=== PATIENT | female | born 1970 | race Caucasian/White ===

== ENCOUNTER 2016-08-27 19:15 | Emergency (ER) | payer MEDICARE, OTHER ==
[2016-08-27] MEDS ORDERED: DEXAMETHASONE 10 MG/ML VIAL PO STA (21:26)
[2016-08-27] MEDS ORDERED: CHERRY SYRUP 10 ML UDC PO ONE (21:31)
[2016-08-27] MEDS ORDERED: DEXAMETHASONE 10 MG/ML VIAL ONE (21:31)
[2016-08-27] MEDS ORDERED: CEFUROXIME AXETIL 250 MG TABLET PO STA (22:12)
[2016-08-27] MEDS ORDERED: CEPHALEXIN 250 MG CAPSULE PO ONE (22:15)
== END 2016-08-27 22:30 | disposition home or self-care (01) ==
DX: H66.91 Otitis media, unspecified, right ear (principal); Q93.4 Deletion of short arm of chromosome 5; K21.9 Gastro-esophageal reflux disease without esophagitis; Z98.2 Presence of cerebrospinal fluid drainage device
CPT/HCPCS: 71020; 87070; 87430; 99283; 99284; A9270

== ENCOUNTER 2017-01-14 10:15 | Outpatient (CLI) | payer MEDICARE, OTHER | END 2017-01-14 10:16 | disposition home or self-care (01) | LOC: LAB 10:15 | PROVIDERS: ATTEND Internal Medicine | DX: Z00.00 Encounter for general adult medical examination without abnormal findings (principal) | CPT/HCPCS: 36415; 82947; 84443 ==

== ENCOUNTER 2018-05-20 13:30 | Outpatient (CLI) | payer MEDICARE, OTHER ==
--- NOTE | 2018-05-20 15:18 | XRAY Report ---
Reason: RIB,CHEST PAIN,RIB PAIN AFTER FALL,R HIP PAIN Procedure Date: 05/20/2018 Accession Number: [id number] / [id number] Procedure: XR - Hip w/Pelvis 2-3V RT CPT Code: FULL RESULT: EXAM: RIGHT HIP AND PELVIS RADIOGRAPHY EXAM DATE: 05/20/2018 02:15 PM. HISTORY: Chest pain, rib pain after fall, right hip pain. COMPARISONS: XR HIPS BILAT 04/29/2012 12:46 PM. TECHNIQUE: 1 view of the pelvis and 1 view of the hip. FINDINGS: Bones: Linear tubular calcification projecting over the right mid abdomen, possibly vestigial rib, also seen in 2011. No fracture or bone lesion. Joints: The bilateral hip, pubis symphysis, and sacroiliac joints are preserved. Soft Tissues: Normal. No soft tissue swelling. IMPRESSION: No fracture or dislocation. RADIA
--- NOTE | 2018-05-20 15:52 | XRAY Report ---
Reason: RIB,CHEST PAIN,RIB PAIN AFTER FALL,R HIP PAIN Procedure Date: 05/20/2018 Accession Number: [id number] / [id number] Procedure: XR - Chest 2 View X-Ray CPT Code: 41558 FULL RESULT: EXAM: CHEST RADIOGRAPHY EXAM DATE: 05/20/2018 02:15 PM. CLINICAL HISTORY: Rib and chest pain after fall, right hip pain. COMPARISON: CHEST 2 VIEW PA/LAT 08/27/2016 9:36 PM. TECHNIQUE: 2 views. FINDINGS: Lungs/Pleura: No focal opacities evident. No pleural effusion. No pneumothorax. Normal volumes. Mediastinum: Stable cardiomediastinal silhouette, altered by scoliosis. Other: Similar appearance of the severe scoliosis with questionable interval increase in the angle of the orthopedic fixation kelly, possibly projectional. No fracture is detected. IMPRESSION: No acute cardiopulmonary abnormality is detected. RADIA
--- NOTE | 2018-05-20 17:19 | XRAY Report ---
Reason: RIB,CHEST PX,RIB PAIN AFTER FALL,R HIP PAIN Procedure Date: 05/20/2018 Accession Number: [id number] / [id number] Procedure: XR - Ribs 2 View RT CPT Code: FULL RESULT: EXAM: RIGHT RIB RADIOGRAPHY EXAM DATE: 05/20/2018 02:15 PM. CLINICAL HISTORY: Rib, chest pain, rib pain after fall, right hip pain. COMPARISON: CHEST 2 VIEW PA/LAT 08/27/2016 9:36 PM. TECHNIQUE: 2 views. FINDINGS: Bones: No evidence for acute rib fracture. Moderate levoscoliosis in the thoracic spine with kelly in place. No pneumothorax or pleural effusion seen. IMPRESSION: No evidence for acute rib fracture. See above. RADIA
== END 2018-05-20 13:31 | disposition home or self-care (01) ==
LOC: DI 13:30
PROVIDERS: ATTEND Internal Medicine
DX: R07.9 Chest pain, unspecified (principal); R07.82 Intercostal pain; M25.551 Pain in right hip
CPT/HCPCS: 71046

== ENCOUNTER 2018-10-26 08:00 | Outpatient (CLI) | payer MEDICARE, OTHER | END 2018-10-26 23:59 | disposition home or self-care (01) | LOC: LAB.R 08:00 | PROVIDERS: ATTEND Obstetrics & Gynecology | DX: R10.2 Pelvic and perineal pain (principal) | CPT/HCPCS: 87086 ==

== ENCOUNTER 2018-11-04 14:26 | Outpatient (CLI) | payer MEDICARE, OTHER ==
[2018-11-04 15:03] LABS: MEAN CORPUSCULAR HEMOGLOBIN 25.3 pg (27.0-31.0); MEAN CORPUSCULAR HGB CONC 31.8 g/dL (32.0-36.0); MEAN CORPUSCULAR VOLUME 79.4 fL (81.0-99.0); MEAN PLATELET VOLUME 9.9 fL (7.9-10.8); RED BLOOD COUNT 4.35 10^6/uL (4.20-5.40); RED CELL DISTRIBUTION WIDTH 16.1 % (12.0-15.0); WHITE BLOOD COUNT 7.8 x10^3/uL (4.8-10.8)
[2018-11-04 15:37] LABS: HB2 TOTAL 12.1 g/dL; HEMOGLOBIN A1C 0.48 g/dL; HEMOGLOBIN A1C % 5.8 % (4.6-6.2)
[2018-11-04 15:49] LABS: T4 (THYROXINE) 5.63 ug/dL (6.09-12.23); THYROID STIMULATING HORMONE 5.55 uIU/mL (0.34-5.60)
[2018-11-04 15:51] LABS: FERRITIN 8.5 ng/mL (11.0-306.8)
[2018-11-04 15:52] LABS: TOTAL T3 0.94 ng/mL (0.87-1.78)
[2018-11-04 16:04] LABS: ALBUMIN 4.4 g/dL (3.2-5.5); ALBUMIN/GLOBULIN RATIO 1.1 (1.0-2.2); BILIRUBIN,TOTAL 0.4 mg/dL (0.2-1.0); CALCIUM 9.2 mg/dL (8.5-10.3); CREATININE 0.7 mg/dL (0.4-1.0); TOTAL PROTEIN 8.4 g/dL (6.7-8.2)
[2018-11-04 16:13] LABS: FOLLICLE STIMULATING HORMONE 14.69 mIU/mL
== END 2018-11-04 14:27 | disposition home or self-care (01) ==
LOC: LAB 14:26
PROVIDERS: ATTEND Obstetrics & Gynecology
DX: Z01.419 Encounter for gynecological examination (general) (routine) without abnormal findings (principal); N95.0 Postmenopausal bleeding; R10.2 Pelvic and perineal pain
CPT/HCPCS: 36415; 80053; 82306; 82670; 82728; 83001; 83036; 83540; 84436; 84443; 84466; 84480; 85027

== ENCOUNTER 2018-11-10 11:17 | Outpatient (CLI) | payer MEDICARE, OTHER ==
--- NOTE | 2018-11-10 18:41 | Ultrasound Report ---
Reason: PELVIC PAIN Procedure Date: 11/10/2018 Accession Number: [id number] / [id number] Procedure: US - Pelvic Complete CPT Code: FULL RESULT: EXAM: PELVIC ULTRASOUND EXAM DATE: 11/10/2018 11:36 AM. CLINICAL HISTORY: PELVIC PAIN. Cri du chat syndrome. Unclear menopausal status with daily bleeding. COMPARISON: 04/20/2009 TECHNIQUE: Realtime transabdominal only pelvic scan performed to identify the uterus and adnexa and as an overview of other pelvic structures, with static image documentation. FINDINGS: Uterus: 9.9 x 5.9 x 5.8 cm, volume 177 cc. Anteverted position. Normal overall size and echotexture. Masses: Anterior intramural 3.9 x 2.7 x 4.1 cm and posterior subserosal 2.3 x 1.3 x 2.3 cm fibroid. Cannot exclude mass-effect on the endometrial canal by the anterior fibroid. Endometrium: 7.5 mm. Normal. Cervix: Unremarkable. Right Ovary: 3.3 x 2.8 x 2.4 cm, volume 11.6 cc. Normal echotexture and blood flow. Multiple small cysts. Left Ovary: 3 x 1.6 x 2.3 cm, volume 5.7 cc. Normal echotexture and blood flow. Free Fluid: None. Other: Left inguinal region scanned in the area of pain. No hernia or mass seen. IMPRESSION: Myomatous changes of the uterus. No abnormality identified in the left inguinal region to explain pain. RADIA
== END 2018-11-10 11:18 | disposition home or self-care (01) ==
LOC: DI 11:17
PROVIDERS: ATTEND Obstetrics & Gynecology
DX: Z01.419 Encounter for gynecological examination (general) (routine) without abnormal findings (principal); D25.2 Subserosal leiomyoma of uterus; R10.2 Pelvic and perineal pain; R62.50 Unspecified lack of expected normal physiological development in childhood; Q93.4 Deletion of short arm of chromosome 5
CPT/HCPCS: 76856

== ENCOUNTER 2020-10-02 14:46 | Outpatient (CLI) | payer MEDICARE, OTHER ==
[2020-10-02] MEDS ORDERED: IOPAMIDOL-300 100 ML VIAL ONE (15:10)
[2020-10-02] MEDS ORDERED: IOPAMIDOL-300 100 ML VIAL IVP ONE (16:06)
--- NOTE | 2020-10-02 17:28 | CT Report ---
PROCEDURE: IVP INDICATIONS: MICROHEMATURIA CONTRAST: IV CONTRAST: Isovue 300 ml: 140 PO CONTRAST: *NO PO CONTRAST TECHNIQUE: After the administration of intravenous contrast, 5 mm thick sections acquired from the diaphragms to the symphysis. 5 mm thick coronal and sagittal reformats were acquired. For radiation dose reducti on, the following was used: automated exposure control, adjustment of mA and/or kV according to thaddeus ent size. COMPARISON: None. FINDINGS: Image quality: Somewhat limited by patient motion during image acquisition through the kidneys on the postcontrast excretion phase of imaging.. Lung bases: Lung bases are clear. Heart size is normal. Urinary system: Both kidneys are normal in size and enhancement. Contrast-filled renal calyces are normal in morphology. Contrast filled portions of both ureters are normal in caliber. Bladder wall thickness is normal. Solid organs: Liver and spleen are normal in size and enhancement. Gallbladder Biliary system is non dilated. Pancreas enhances normally. No adrenal nodules. Peritoneum and bowel: Bowel loops demonstrate normal wall thickness and caliber. No free fluid or a ir. Nodes and vessels: No retroperitoneal or mesenteric adenopathy by size criteria. Aorta and inferior vena cava are normal in size. Abdominal wall: No ventral hernias. Note is made of relatively prominent scoliosis with a Harringto n kelly extending from the chest into the upper abdomen area dorsally. Pelvis: No pathologic free pelvic fluid. No inguinal hernias or adenopathy. Bones: No suspicious bony lesions. No vertebral body compression fractures. IMPRESSION: The kidney visualization on postcontrast imaging is somewhat limited by patient breathin g motion. No urinary tract stone is found. No bladder mass or calculus is seen. A definite source of microhematuria is not found. Scoliosis with spine fixation by Carbone kelly is noted, no evidence of urinary tract abnormality in duced by scoliosis. A mass lesion is not seen. Reviewed by: Robert Gonzales MD on 10/02/2020 5:26 PM PDT Approved by: Robert Gonzales MD on 10/02/2020 5:26 PM PDT Station ID: [id number]
== END 2020-10-02 14:47 | disposition home or self-care (01) ==
LOC: DI 14:46
PROVIDERS: ATTEND Urology
DX: R31.29 Other microscopic hematuria (principal)
CPT/HCPCS: 74178; Q9967

== ENCOUNTER 2020-10-09 18:38 | Outpatient (CLI) | payer MEDICARE, OTHER | END 2020-10-09 23:59 | disposition home or self-care (01) | LOC: LAB.N 18:38 | PROVIDERS: ATTEND Physician Assistant | DX: R10.9 Unspecified abdominal pain (principal) | CPT/HCPCS: 87086 ==

== ENCOUNTER 2021-01-16 08:00 | Outpatient (CLI) | payer MEDICARE, OTHER ==
[2021-01-16 17:45] LABS: BASOPHILS # (AUTO) 0.1 10^3/uL (0.0-0.1); EOSINOPHILS # (AUTO) 0.3 10^3/uL (0.0-0.7); EOSINOPHILS % (AUTO) 4.9 %; HCT - HEMATOCRIT 36.9 % (37.0-47.0); HGB - HEMOGLOBIN 11.1 g/dL (12.0-16.0); LYMPHOCYTES # (AUTO) 1.9 10^3/uL (1.5-3.5); LYMPHOCYTES % (AUTO) 30.7 %; MEAN CORPUSCULAR HEMOGLOBIN 25.5 pg (27.0-31.0); MEAN CORPUSCULAR HGB CONC 30.1 g/dL (32.0-36.0); MEAN CORPUSCULAR VOLUME 84.6 fL (81.0-99.0); MEAN PLATELET VOLUME 12.6 fL (7.9-10.8); MONOCYTES # (AUTO) 1.1 10^3/uL (0.0-1.0); MONOCYTES % (AUTO) 18.3 %; NEUTROPHILS # (AUTO) 2.8 10^3/uL (1.5-6.6); NEUTROPHILS % (AUTO) 44.9 %; PLT - PLATELET COUNT 220 10^3/uL (130-450); RED BLOOD COUNT 4.36 10^6/uL (4.20-5.40); RED CELL DISTRIBUTION WIDTH 15.2 % (12.0-15.0); WHITE BLOOD COUNT 6.1 x10^3/uL (4.8-10.8)
[2021-01-16 18:00] LABS: ALBUMIN 4.1 g/dL (3.2-5.5); ALBUMIN/GLOBULIN RATIO 1.1 (1.0-2.2); BILIRUBIN,TOTAL 0.6 mg/dL (0.2-1.0); CALCIUM 9.4 mg/dL (8.5-10.3); POTASSIUM 4.3 mmol/L (3.5-5.0); TOTAL PROTEIN 7.7 g/dL (6.7-8.2)
[2021-01-16 18:14] LABS: CREATININE 0.7 mg/dL (0.4-1.0)
[2021-01-16 18:46] LABS: THYROID STIMULATING HORMONE 3.91 uIU/mL (0.34-5.60)
== END 2021-01-16 23:59 | disposition home or self-care (01) ==
LOC: LAB.WCP 08:00
PROVIDERS: ATTEND Family Medicine
DX: R63.0 Anorexia (principal)
CPT/HCPCS: 36415; 80053; 84134; 84443; 85025

== ENCOUNTER 2021-02-01 10:57 | Outpatient (CLI) | payer MEDICARE, OTHER | END 2021-02-01 10:58 | disposition home or self-care (01) | LOC: NS 10:57 | PROVIDERS: ATTEND Family Medicine | DX: Z71.3 Dietary counseling and surveillance (principal); R63.0 Anorexia; Q93.4 Deletion of short arm of chromosome 5 ==

== ENCOUNTER 2021-02-01 11:58 | Outpatient (CLI) | payer MEDICARE, OTHER ==
[2021-02-01 12:15] LABS: BASOPHILS % (AUTO) 0.5 %; EOSINOPHILS # (AUTO) 0.3 10^3/uL (0.0-0.7); EOSINOPHILS % (AUTO) 3.7 %; HCT - HEMATOCRIT 38.5 % (37.0-47.0); HGB - HEMOGLOBIN 11.4 g/dL (12.0-16.0); LYMPHOCYTES # (AUTO) 1.5 10^3/uL (1.5-3.5); LYMPHOCYTES % (AUTO) 20.2 %; MEAN CORPUSCULAR HEMOGLOBIN 25.3 pg (27.0-31.0); MEAN CORPUSCULAR HGB CONC 29.6 g/dL (32.0-36.0); MEAN CORPUSCULAR VOLUME 85.4 fL (81.0-99.0); MEAN PLATELET VOLUME 11.3 fL (7.9-10.8); MONOCYTES # (AUTO) 1.2 10^3/uL (0.0-1.0); NEUTROPHILS # (AUTO) 4.5 10^3/uL (1.5-6.6); NEUTROPHILS % (AUTO) 59.5 %; PLT - PLATELET COUNT 209 10^3/uL (130-450); RED BLOOD COUNT 4.51 10^6/uL (4.20-5.40); RED CELL DISTRIBUTION WIDTH 15.6 % (12.0-15.0); WHITE BLOOD COUNT 7.5 x10^3/uL (4.8-10.8)
[2021-02-01 12:41] LABS: % IRON SATURATION 6 % (20-50); IRON 26 ug/dL (28-170); TOTAL IRON BINDING CAPACITY 419 ug/dL (250-450); TRANSFERRIN 299 mg/dL (192-382)
== END 2021-02-01 11:59 | disposition home or self-care (01) ==
LOC: LAB 11:58
PROVIDERS: ATTEND Physician Assistant Medical
DX: Z71.3 Dietary counseling and surveillance (principal); K21.9 Gastro-esophageal reflux disease without esophagitis; R63.0 Anorexia; Q93.4 Deletion of short arm of chromosome 5
CPT/HCPCS: 36415; 82728; 83540; 84466; 85025; 97802

== ENCOUNTER 2021-05-27 08:00 | Outpatient (CLI) | payer MEDICARE, OTHER ==
--- NOTE | 2021-05-27 18:46 | XRAY Report ---
PROCEDURE: Hip w/Pelvis 2-3V RT INDICATIONS: RIGHT HIP PAIN TECHNIQUE: AP pelvis with lateral view(s) of the right hip(s). COMPARISON: May 20, 2018 FINDINGS: BONES/JOINT: No acute, displaced fracture or dislocation. The femoral heads are seated within the syed tabula. The sacroiliac joints are patent. SOFT TISSUES: No focal abnormality. IMPRESSION: 1.No acute osseous abnormality. Reviewed by: Link Ryder MD on 05/27/2021 6:45 PM PST Approved by: Link Ryder MD on 05/27/2021 6:45 PM PST Station ID: [id number]
== END 2021-05-27 23:59 | disposition home or self-care (01) ==
LOC: DI.S 08:00
PROVIDERS: ATTEND Physician Assistant Medical
DX: M25.551 Pain in right hip (principal)

== ENCOUNTER 2022-03-18 08:00 | Outpatient (CLI) | payer MEDICARE, OTHER ==
--- NOTE | 2022-03-18 12:54 | XRAY Report ---
PROCEDURE: Hip 2 View RT INDICATIONS: RIGHT HIP PAIN TECHNIQUE: AP view of the pelvis and lateral view of the right hip were acquired. COMPARISON: Right hip radiographs 05/27/2021, 05/20/2018 FINDINGS: Bones: No acute fractures or dislocations. No suspicious bony lesions. The visualized pelvic ring appears intact. Soft tissues: Small calcification along the lateral aspect of the proximal right femoral shaft appear s unchanged. IMPRESSION: No acute osseous abnormality. If symptoms persist or there is continued clinical concern, further stanley luation with MRI or CT may be helpful. Reviewed by: Nick Martinez MD on 03/18/2022 12:53 PM PDT Approved by: Nick Martinez MD on 03/18/2022 12:53 PM PDT Station ID: [id number]
== END 2022-03-18 23:59 | disposition home or self-care (01) ==
LOC: DI.WOS 08:00
PROVIDERS: ATTEND Orthopaedic Surgery
DX: M25.551 Pain in right hip (principal)

== ENCOUNTER 2022-05-13 08:00 | Outpatient (CLI) | payer MEDICARE, OTHER ==
[2022-05-13 16:21] LABS: BILIRUBIN,URINE NEGATIVE (NEGATIVE); GLUCOSE, URINE (UA) NEGATIVE (NEGATIVE); KETONES,URINE (UA) NEGATIVE (NEGATIVE); LEUKOCYTE ESTERASE, URINE TRACE (NEGATIVE); NITRITE,URINE NEGATIVE (NEGATIVE); OCCULT BLOOD,URINE TRACE-INTA (NEGATIVE); PH,URINE 5.5 PH (5.0-7.5); PROTEIN,URINE NEGATIVE (NEGATIVE); UROBILINOGEN,URINE 0.2 (NORMAL) E.U./dL (NORMAL)
[2022-05-13 16:27] LABS: CLARITY,URINE HAZY (CLEAR)
== END 2022-05-13 23:59 | disposition home or self-care (01) ==
LOC: LAB.R 08:00
PROVIDERS: ATTEND Internal Medicine
DX: N39.0 Urinary tract infection, site not specified (principal)
CPT/HCPCS: 81003; 87086

== ENCOUNTER 2023-08-25 13:14 | Outpatient (CLI) | payer MEDICARE, OTHER ==
[2023-08-25] MEDS ORDERED: iohexoL-300 100 ML VIAL ONE (13:25)
[2023-08-25] MEDS ORDERED: DIATRIZOATE MEGLU/DIATRIZO SOD 30 ML BOTTLE PO ONE (13:25)
--- NOTE | 2023-08-25 15:28 | CT Report ---
PROCEDURE: Abdomen/Pelvis W INDICATIONS: ABD PAIN, PELVIC PAIN CONTRAST: Omni 300 100ml TECHNIQUE: After the administration of intravenous contrast, a CT scan of the abdomen and pelvis was performed. Images were recorded and evaluated at appropriate window settings. Reformats: coronal and sagittal. F or radiation dose reduction, the following was used: automated exposure control, adjustment of mA and /or kV according to patient size. COMPARISON: CT 10/02/2020. FINDINGS: Image quality: Suboptimal due to motion artifact. Lower chest: Unremarkable. Liver: No solid mass. Gallbladder and biliary tree: Surgically absent. No biliary dilation, accounting for post-cholecystec tejinder state. Spleen: No splenomegaly. Pancreas: No pancreatic ductal dilation. Adrenals: No adrenal nodule. Kidneys and ureters: No hydronephrosis. No renal cystic lesion which requires follow up. No solid mas s. Stomach, bowel and peritoneum: No bowel distension. No pathologic free fluid. Lymph nodes: No central or retroperitoneal adenopathy. Vessels: No infrarenal aortic aneurysm. PELVIS Reproductive organs: 4.1 cm right intramural uterine fibroid with new internal cystic change measurin g 4.1 cm, previously 5.0 cm. Bladder: No abnormal wall thickening, accounting for underdistention. Pelvic lymph nodes: No pelvic adenopathy by size criteria. Bones: No aggressive osseous abnormality. Surgical fusion of the thoracic spine. Scoliosis Other: No significant ventral or inguinal hernia. IMPRESSION: Interval necrosis of a 4.1 cm right intramural uterine fibroid. Reviewed by: Yimi Badillo MD on 08/25/2023 3:26 PM PDT Approved by: Yimi Badillo MD on 08/25/2023 3:26 PM PDT Station ID: [id number]
[2023-08-25] MEDS: iohexoL-300 100 ML VIAL IVP ONE (18:16)
[2023-08-25] MEDS: DIATRIZOATE MEGLU/DIATRIZO SOD 30 ML BOTTLE PO ONE (18:17)
== END 2023-08-25 13:15 | disposition home or self-care (01) ==
LOC: DI 13:14
PROVIDERS: ATTEND Internal Medicine
DX: Z12.31 Encounter for screening mammogram for malignant neoplasm of breast (principal); R92.333 Mammographic heterogeneous density, bilateral breasts
CPT/HCPCS: 74177; Q9963; Q9967